=== PATIENT | male | born 1965 ===

== ENCOUNTER 2021-04-02 15:41 | Outpatient (CLI) | payer OTHER | END 2021-04-02 15:42 | disposition home or self-care (01) | LOC: COV 15:41 | PROVIDERS: ATTEND Family Medicine | DX: Z20.822 Contact with and (suspected) exposure to COVID-19 (principal) ==

== ENCOUNTER 2021-06-26 08:00 | Outpatient (CLI) | payer OTHER ==
--- NOTE | 2021-06-26 13:16 | XRAY Report ---
PROCEDURE: Finger(s) RT INDICATIONS: CRUSHING INJURY OF RIGHT THUMB TECHNIQUE: AP hand, 2 views of the first finger(s) acquired. COMPARISON: None FINDINGS: BONES: No acute, displaced fracture or dislocation. The carpal bones are normally aligned. The joint spaces are maintained. No substantial periarticular osteophytosis. SOFT TISSUES: No focal abnormality. IMPRESSION: 1.No acute osseous abnormality. Reviewed by: Ajay Quintero MD on 06/26/2021 1:14 PM [facility] Approved by: Ajay Quintero MD on 06/26/2021 1:14 PM [facility] Station ID: [id number]
== END 2021-06-26 23:59 | disposition home or self-care (01) ==
LOC: DI.S 08:00
PROVIDERS: ATTEND Physician Assistant
DX: S67.01XA Crushing injury of right thumb, initial encounter (principal)